=== PATIENT | male | born 1935 | race Caucasian/White ===

== ENCOUNTER 2016-12-11 15:08 | Emergency (ER) | payer MEDICARE, BC ==
[2016-12-11] MEDS ORDERED: INDOMETHACIN 25 MG CAPSULE PO ONE (15:52)
[2016-12-11] MEDS ORDERED: CEFTRIAXONE 1 GRAM VIAL IM ONE (15:53)
[2016-12-11] MEDS ORDERED: CEFTRIAXONE SODIUM 1 GM in 0.9 % SODIUM CHLORIDE 100ML 100 ML IVPB ONE (15:55)
--- NOTE | 2016-12-11 15:58 | Emergency Department Record ---
History of Present Illness - General Chief complaint: Extremity Problem Stated complaint: RT ELBOW RED/SWOLLEN Time Seen by Provider: 12/11/16 15:40 Source: Patient, RN notes reviewed Mode of Arrival: Ambulatory - History of Present Illness Initial comments: redness in the right elbow area and less red today and he has history of gout and he was seen in [facility] care yesterday and started on augmentin 875 mg BID Onset/Timin -: Days(s) Location: Right, Elbow History of Same: No Severity scale (1-10): >10 Quality: Sharp Consistency: Constant Improves with: Nothing Worsens with: Exertion, Palpation, Weight bearing Associated Symptoms: Denies other symptoms - Related Data Home Medications Medication Instructions Recorded Confirmed Last Taken Levothyroxine Sodium [Synthroid] 75 mcg PO DAILY 08/26/14 12/11/16 Unknown Lisinopril [Lisinopril] 40 mg PO DAILY 08/26/14 12/11/16 04/16/15 Metoprolol Tartrate 25 mg PO DAILY 90 Days 12/10/16 12/11/16 Unknown Previous Rx's Medication Instructions Recorded Indomethacin [Indocin] 50 mg PO TID #20 capsule 12/11/16 Allergies Allergy/AdvReac Type Severity Reaction Status Date / Time No Known Drug Allergies Allergy Unverified 12/10/16 13:18 Travel Screening - Travel/Exposure Within Last 30 Days Have you traveled within the last 30 days?: No Review of Systems Reviewed: No additional complaints except as noted below Constitutional: Reports: As per HPI. Denies: Chills, Fever, Malaise, Night sweats, Weakness, Weight change Eyes: Reports: As per HPI. Denies: Eye discharge, Eye pain, Photophobia, Vision change ENT: Reports: As per HPI. Denies: Congestion, Dental pain, Ear pain, Epistaxis , Hearing loss, Throat pain Respiratory: Reports: As per HPI. Denies: Cough, Dyspnea, Hemoptysis, Stridor, Wheezes Cardiovascular: Reports: As per HPI. Denies: Arrhythmia, Chest pain, Dyspnea on exertion, Edema, Murmurs, Orthopnea, Palpitations, Paroxysmal nocturnal dyspnea, Rheumatic Fever, Syncope Endocrine: Reports: As per HPI. Denies: Fatigue, Heat or cold intolerance, Polydipsia, Polyuria Gastrointestinal: Reports: As per HPI. Denies: Abdominal pain, Constipation, Diarrhea, Hematemesis, Hematochezia, Melena, Nausea, Vomiting Genitourinary: Reports: As per HPI. Denies: Dysuria, Frequency, Hematuria, Incontinence, Retention, Testicular pain, Testicular mass, Urgency Musculoskeletal: Reports: As per HPI, Other (redness in the olecronen process area). Denies: Arthralgia, Back pain, Gout, Joint swelling, Myalgia, Neck pain Skin: Reports: As per HPI. Denies: Bruising, Change in color, Change in hair/ nails, Lesions, Pruritus, Rash Neurological: Reports: As per HPI. Denies: Abnormal gait, Confusion, Headache, Numbness, Paresthesias, Seizure, Tingling, Tremors, Vertigo, Weakness Psychiatric: Reports: As per HPI. Denies: Anxiety, Auditory hallucinations, Depression, Homicidal thoughts, Suicidal thoughts, Visual hallucinations Hematological/Lymphatic: Reports: As per HPI. Denies: Anemia, Blood Clots, Easy bleeding, Easy bruising, Swollen glands Past Medical History - SOCIAL HISTORY Smoking Status: Never smoker - RESPIRATORY Hx Respiratory Disorders: No - CARDIOVASCULAR Hx Cardio Disorders: Yes Hx Hypertension: Yes - NEURO Hx Neuro Disorders: Yes Hx Dizziness: Yes - GI Hx GI Disorders: No - Hx Genitourinary Disorders: No - ENDOCRINE Hx Endocrine Disorders: No - MUSCULOSKELETAL Hx Musculoskeletal Disorders: Yes Hx Arthritis: Yes - PSYCH Hx Psych Problems: Yes Hx Anxiety: Yes Hx Depression: Yes - HEMATOLOGY/ONCOLOGY Hx Hematology/Oncology Disorders: No Family Medical History Any Significant Family History?: No Physical Exam - General General Appearance: Alert, Oriented x3, Cooperative, No acute distress - Head Head exam: Normal inspection - Eye Eye exam: Normal appearance, PERRL Pupils: Normal accommodation - ENT ENT exam: Normal exam, Mucous membranes moist, Normal external ear exam, Normal orophraynx, TM's normal bilaterally Ear exam: Normal external inspection. negative: External canal tenderness Nasal Exam: Normal inspection. negative: Discharge, Sinus tenderness Mouth exam: Normal external inspection, Tongue normal Teeth exam: Normal inspection. negative: Dental caries Throat exam: Normal inspection. negative: Tonsillar erythema, Tonsillar exudate - Neck Neck exam: Normal inspection, Full ROM. negative: Tenderness - Respiratory Respiratory exam: Normal lung sounds bilaterally. negative: Respiratory distress - Cardiovascular Cardiovascular Exam: Regular rate, Normal rhythm, Normal heart sounds - GI/Abdominal GI/Abdominal exam: Soft, Normal bowel sounds. negative: Tenderness - Rectal Rectal exam: Deferred - exam: Deferred - Extremities Extremities exam: Full ROM, Normal capillary refill, Tenderness, Other - Back Back exam: Reports: Normal inspection, Full ROM. Denies: Muscle spasm, Rash noted, Tenderness - Neurological Neurological exam: Alert, Normal gait, Oriented X3, Reflexes normal - Psychiatric Psychiatric exam: Normal affect, Normal mood - Skin Skin exam: Dry, Intact, Normal color, Warm Course Vital Signs 12/11/16 15:31 Temperature 98.6 F Pulse Rate 100 H Respiratory 18 Rate Blood Pressure 139/77 Pulse Ox 97 Medical Decision Making - Data Complexity MDM Data: Labs Ordered and/or Reviewed - Lab Data Result diagrams: 12/11/16 16:15 Disposition Clinical Impression: Olecranon bursitis Qualifiers: Laterality: right Qualified Code(s): M70.21 - Olecranon bursitis, right elbow Cellulitis Qualifiers: Site of cellulitis: extremity Site of cellulitis of extremity: upper extremity Laterality: right Qualified Code(s): L03.113 - Cellulitis of right upper limb Disposition: Home, Self-Care Condition: (1) Good Instructions: Elbow Bursitis (ED) Additional Instructions: follow up with Dr Avila at 9 am tomorrow Prescriptions: Indomethacin [Indocin] 50 mg PO TID #20 capsule Forms: Patient Portal Access Time of Disposition: 16:46
[2016-12-11 16:29] LABS: BASO % 0.3 % (0-6); EOS % 4.8 % (0-6); GRAN % 66.3 % (47-80); LYMPH % 19.4 % (16-45); MEAN CELL VOLUME 90.3 fl (81-97); MEAN CORPUSCULAR HEMOGLOBIN 30.1 pg (27-33); MEAN CORPUSCULAR HGB CONC 33.3 g/dl (32-36); MEAN PLATELET VOLUME 10.8 fl (7.4-10.4); MONO % 9.2 % (0-9); PLATELET COUNT 189 K/uL (130-400); RED BLOOD COUNT 4.65 M/uL (4.40-5.70); RED CELL DISTRIBUTION WIDTH 12.7 % (11.5-14.5); WHITE BLOOD COUNT W/O DIFF 9.2 K/uL (4.2-12.2)
== END 2016-12-11 16:59 | disposition home or self-care (01) ==
LOC: ER 15:08
DX: M70.21 Olecranon bursitis, right elbow (principal); L03.113 Cellulitis of right upper limb
CPT/HCPCS: 84550; 85025; 96365; 99284

== ENCOUNTER 2016-12-12 18:38 | Emergency (ER) | payer MEDICARE, BC ==
[2016-12-12 20:19] LABS: BASO % 0.1 % (0-6); EOS % 7.1 % (0-6); GRAN % 56.8 % (47-80); HEMATOCRIT 39.6 % (42.0-52.0); HEMOGLOBIN 13.2 gm/dl (14.0-18.0); LYMPH % 23.8 % (16-45); MEAN CORPUSCULAR HGB CONC 33.3 g/dl (32-36); MEAN PLATELET VOLUME 10.8 fl (7.4-10.4); MONO % 12.2 % (0-9); PLATELET COUNT 189 K/uL (130-400); RED BLOOD COUNT 4.45 M/uL (4.40-5.70); RED CELL DISTRIBUTION WIDTH 12.5 % (11.5-14.5); WHITE BLOOD COUNT W/O DIFF 6.7 K/uL (4.2-12.2)
[2016-12-12 20:23] LABS: MEAN CORPUSCULAR HEMOGLOBIN 29.6 pg (27-33)
[2016-12-12 20:32] LABS: ALB/GLOB RATIO 1.2 (1.1-1.8); ALBUMIN 3.6 gm/dL (3.5-5.0); ANION GAP 7.6 (7-16); BILIRUBIN,TOTAL 0.66 mg/dL (0.2-1.3); CARBON DIOXIDE 24.4 mmol/L (22-30); CREATININE 1.8 mg/dL (0.66-1.25); TOTAL PROTEIN 6.6 gm/dL (6.3-8.2)
[2016-12-12 20:32] LABS: URINE APPEARANCE CLEAR; URINE BILIRUBIN MODERATE (NEGATIVE); URINE BLOOD NEGATIVE (NEGATIVE); URINE COLOR YELLOW; URINE GLUCOSE (UA) NEGATIVE (NEGATIVE); URINE KETONE TRACE (NEGATIVE); URINE LEUKOCYTE ESTERASE NEGATIVE (NEGATIVE); URINE NITRITE NEGATIVE (NEGATIVE); URINE UROBILINOGEN 0.2 E.U./dL (0.20 - 1.00)
[2016-12-12 20:59] LABS: ERYTHROCYTE SEDIMENTATION RATE 18 mm/hr (0-20)
--- NOTE | 2016-12-12 21:42 | Emergency Department Record ---
History of Present Illness - General Chief Complaint: Confusion Stated Complaint: CONFUSED,ELBOW PAIN Time Seen by Provider: 12/12/16 19:34 Source: Patient, Family Mode of Arrival: Ambulatory Limitations: No limitations - History of Present Illness Initial Comments: pt brought in by family for increased confusion. pt is being treated w augmentin the last few days for olecranon bursitis. tonight he seemed more confused and he had problems holding onto his cup with his right hand [the arm with olecranon bursitis] family says the elbow looks better and has less swelling then it had. MD Complaint: Altered mental status Onset/Timin -: Days(s) Severity: Moderate Consistency: Getting worse Context: Change in medication Associated Symptoms: Denies other symptoms - [place] Coma Scale Eye Response: (4) Open spontaneously Motor Response: (6) Obeys commands Verbal Response: (4) Confused conversation [place] Total: 14 - Symptoms of Stroke Symptoms of stroke: Onset of Confusion - Related Data Home Medications Medication Instructions Recorded Confirmed Last Taken Levothyroxine Sodium [Synthroid] 75 mcg PO DAILY 08/26/14 12/12/16 Unknown Lisinopril [Lisinopril] 40 mg PO DAILY 08/26/14 12/12/16 04/16/15 Metoprolol Tartrate 25 mg PO DAILY 90 Days 12/10/16 12/12/16 Unknown Previous Rx's Medication Instructions Recorded Indomethacin [Indocin] 50 mg PO TID #20 capsule 12/11/16 Allergies Allergy/AdvReac Type Severity Reaction Status Date / Time No Known Drug Allergies Allergy Unverified 12/10/16 13:18 Travel Screening - Travel/Exposure Within Last 30 Days Have you traveled within the last 30 days?: No - Travel/Exposure Within Last Year Have you traveled outside the [place] in the last year?: No - Additonal Travel Details Have you been exposed to anyone with a communicable illness?: No - Travel Symptoms Symptom Screening: None Review of Systems Reviewed: No additional complaints except as noted below Constitutional: Reports: As per HPI. Denies: Chills, Fever, Malaise, Night sweats, Weakness, Weight change Eyes: Reports: As per HPI. Denies: Eye discharge, Eye pain, Photophobia, Vision change ENT: Reports: As per HPI. Denies: Congestion, Dental pain, Ear pain, Epistaxis , Hearing loss, Throat pain Respiratory: Reports: As per HPI. Denies: Cough, Dyspnea, Hemoptysis, Stridor, Wheezes Cardiovascular: Reports: As per HPI. Denies: Arrhythmia, Chest pain, Dyspnea on exertion, Edema, Murmurs, Orthopnea, Palpitations, Paroxysmal nocturnal dyspnea, Rheumatic Fever, Syncope Endocrine: Reports: As per HPI. Denies: Fatigue, Heat or cold intolerance, Polydipsia, Polyuria Gastrointestinal: Reports: As per HPI. Denies: Abdominal pain, Constipation, Diarrhea, Hematemesis, Hematochezia, Melena, Nausea, Vomiting Genitourinary: Reports: As per HPI. Denies: Dysuria, Frequency, Hematuria, Incontinence, Retention, Testicular pain, Testicular mass, Urgency Musculoskeletal: Reports: As per HPI. Denies: Arthralgia, Back pain, Gout, Joint swelling, Myalgia, Neck pain Skin: Reports: As per HPI. Denies: Bruising, Change in color, Change in hair/ nails, Lesions, Pruritus, Rash Neurological: Reports: As per HPI. Denies: Abnormal gait, Confusion, Headache, Numbness, Paresthesias, Seizure, Tingling, Tremors, Vertigo, Weakness Psychiatric: Reports: As per HPI. Denies: Anxiety, Auditory hallucinations, Depression, Homicidal thoughts, Suicidal thoughts, Visual hallucinations Hematological/Lymphatic: Reports: As per HPI. Denies: Anemia, Blood Clots, Easy bleeding, Easy bruising, Swollen glands Past Medical History - SOCIAL HISTORY Smoking Status: Never smoker Alcohol Use: None Drug Use: None - RESPIRATORY Hx Respiratory Disorders: No - CARDIOVASCULAR Hx Cardio Disorders: Yes Hx Hypertension: Yes - NEURO Hx Neuro Disorders: Yes Hx Dizziness: Yes - GI Hx GI Disorders: No - Hx Genitourinary Disorders: No - ENDOCRINE Hx Endocrine Disorders: No - MUSCULOSKELETAL Hx Musculoskeletal Disorders: Yes Hx Arthritis: Yes - PSYCH Hx Psych Problems: Yes Hx Anxiety: Yes Hx Depression: Yes - HEMATOLOGY/ONCOLOGY Hx Hematology/Oncology Disorders: No Family Medical History Any Significant Family History?: No Physical Exam - General General Appearance: Alert, Oriented x3, Cooperative, Mild distress - Head Head exam: Normal inspection - Eye Eye exam: Normal appearance, PERRL, EOMI Pupils: Normal accommodation - ENT ENT exam: Normal exam, Mucous membranes moist, Normal external ear exam, Normal orophraynx Ear exam: Normal external inspection. negative: External canal tenderness Nasal Exam: Normal inspection. negative: Discharge, Sinus tenderness Mouth exam: Normal external inspection, Tongue normal Teeth exam: Normal inspection. negative: Dental caries Throat exam: Normal inspection. negative: Tonsillar erythema, Tonsillar exudate - Neck Neck exam: Normal inspection, Full ROM. negative: Tenderness - Respiratory Respiratory exam: Normal lung sounds bilaterally. negative: Respiratory distress - Cardiovascular Cardiovascular Exam: Regular rate, Normal rhythm, Normal heart sounds - GI/Abdominal GI/Abdominal exam: Soft, Normal bowel sounds. negative: Tenderness - Rectal Rectal exam: Deferred - exam: Deferred - Extremities Extremities exam: Normal inspection, Full ROM, Normal capillary refill. negative: Tenderness - Back Back exam: Reports: Normal inspection, Full ROM. Denies: Muscle spasm, Rash noted, Tenderness - Neurological Neurological exam: Alert, CN II-XII intact, Normal gait, Oriented X3 - Psychiatric Psychiatric exam: Normal affect, Normal mood - Skin Skin exam: Dry, Intact, Normal color, Warm Course Vital Signs 12/12/16 18:52 Temperature 98.4 F Pulse Rate 84 Respiratory 20 Rate Blood Pressure 151/93 Pulse Ox 98 - Reevaluation(s) Reevaluation #1: 12/12/16 21:42 pts confusion cleared. pt has no focal deficits.d/w dr ramon Medical Decision Making - Lab Data Result diagrams: 12/12/16 20:10 12/12/16 20:10 Lab Results 12/12/16 12/12/16 12/12/16 Range/Units 20:10 20:10 20:20 WBC 6.7 (4.2-12.2) K/uL RBC 4.45 (4.40-5.70) M/uL Hgb 13.2 L (14.0-18.0) gm/dl Hct 39.6 L (42.0-52.0) % MCV 89.0 (81-97) fl MCH 29.6 (27-33) pg MCHC 33.3 (32-36) g/dl RDW 12.5 (11.5-14.5) % Plt Count 189 (130-400) K/uL MPV 10.8 H (7.4-10.4) fl Gran % 56.8 (47-80) % Lymphocytes % 23.8 (16-45) % Monocytes % 12.2 H (0-9) % Eosinophils % 7.1 H (0-6) % Basophils % 0.1 (0-6) % ESR 18 (0-20) mm/hr Sodium 136 (136-145) mmol/L Potassium 4.2 (3.5-5.1) mmol/L Chloride 104 (98-107) mmol/L Carbon Dioxide 24.4 (22-30) mmol/L Anion Gap 7.6 (7-16) BUN 36 H (9-20) mg/dL Creatinine 1.8 H (0.66-1.25) mg/dL Estimated GFR 39 ml/min Random Glucose 97 (70-110) mg/dL Calcium 8.2 L (8.5-10.1) mg/dL Total Bilirubin 0.66 (0.2-1.3) mg/dL AST 14 L (17-59) U/L ALT 20 L (21-72) U/L Alkaline Phosphatase 68 (38-126) U/L Total Protein 6.6 (6.3-8.2) gm/dL Albumin 3.6 (3.5-5.0) gm/dL Globulin 3.0 (1.4-4.8) gm/dL Albumin/Globulin Ratio 1.2 (1.1-1.8) Urine Color Yellow Urine Appearance Clear Urine pH 5.5 (5.0-8.0) Ur Specific [place] >= 1.030 (1.002-1.030) Urine Protein 30 mg/dl H (NEGATIVE) Urine Glucose (UA) Negative (NEGATIVE) Urine Ketones Trace H (NEGATIVE) Urine Blood Negative (NEGATIVE) Urine Nitrite Negative (NEGATIVE) Urine Bilirubin Moderate H (NEGATIVE) Urine Urobilinogen 0.2 (0.20 - 1.00) E.U./dL Ur Leukocyte Esterase Negative (NEGATIVE) Disposition Disposition: Discharge Clinical Impression: Confusion Disposition: Home, Self-Care Condition: (1) Good Instructions: Altered Mental Status (ED) Additional Instructions: follow up tomorrow with dr ramon for recheck. return sooner if worse Forms: Patient Portal Access
== END 2016-12-12 22:00 | disposition home or self-care (01) ==
LOC: ER 18:38
DX: R41.0 Disorientation, unspecified (principal); M25.521 Pain in right elbow; I10 Essential (primary) hypertension
CPT/HCPCS: 70450; 80053; 81003; 85025; 85651; 99283; 99284

== ENCOUNTER 2016-12-22 12:07 | Emergency (ER) | payer MEDICARE, BC ==
--- NOTE | 2016-12-22 12:32 | Emergency Department Record ---
History of Present Illness - General Chief Complaint: Cough Stated Complaint: COUGH Time Seen by Provider: 12/22/16 12:26 Source: Patient Mode of Arrival: Ambulatory Limitations: No limitations - History of Present Illness Initial Comments: 80 yo male presents to ED to ED with a CC of cough symptoms and "shaking all over" this morning. Patient also reports feeling "queasy to the his stomach", denies pain symptoms. Patient's significant other reports that the patient has also been more confused intermittently, was seen last week for similar symptoms and had a negative work-up at that time. SO denies fevers/chills. MD Complaint: Cough Onset/Timin -: Days(s) Severity: Moderate Consistency: Intermittent Improves With: Nothing Worsens With: Nothing Associated Symptoms: Nausea Treatments Prior to Arrival: None - Related Data Home Medications Medication Instructions Recorded Confirmed Last Taken Levothyroxine Sodium [Synthroid] 75 mcg PO DAILY 08/26/14 12/22/16 12/22/16 Lisinopril [Lisinopril] 40 mg PO DAILY 08/26/14 12/22/16 12/22/16 Metoprolol Tartrate 25 mg PO DAILY 90 Days 12/10/16 12/22/16 12/22/16 Previous Rx's Medication Instructions Recorded Indomethacin [Indocin] 50 mg PO TID #20 capsule 12/11/16 Ondansetron [Zofran Odt] 4 mg PO Q6H PRN #20 tab.rapdis 12/22/16 Allergies Allergy/AdvReac Type Severity Reaction Status Date / Time No Known Drug Allergies Allergy Unverified 12/10/16 13:18 Travel Screening - Travel/Exposure Within Last 30 Days Have you traveled within the last 30 days?: No - Travel/Exposure Within Last Year Have you traveled outside the [place] in the last year?: No - Additonal Travel Details Have you been exposed to anyone with a communicable illness?: No - Travel Symptoms Symptom Screening: None Review of Systems Constitutional: Reports: Chills. Denies: Fever, Malaise, Night sweats Eyes: Denies: Eye discharge, Eye pain ENT: Reports: Congestion. Denies: Ear pain, Epistaxis Respiratory: Reports: Cough. Denies: Dyspnea Cardiovascular: Denies: Chest pain, Dyspnea on exertion Endocrine: Denies: Fatigue, Heat or cold intolerance Gastrointestinal: Reports: Nausea. Denies: Abdominal pain, Constipation, Vomiting Genitourinary: Denies: Incontinence, Retention Musculoskeletal: Denies: Arthralgia, Back pain, Gout, Joint swelling Skin: Denies: Bruising, Change in color Neurological: Denies: Abnormal gait, Confusion, Headache, Seizure Psychiatric: Denies: Anxiety Hematological/Lymphatic: Denies: Anemia, Blood Clots Past Medical History - SOCIAL HISTORY Smoking Status: Never smoker Alcohol Use: Occassional Drug Use: None - RESPIRATORY Hx Respiratory Disorders: No - CARDIOVASCULAR Hx Cardio Disorders: Yes Hx Hypertension: Yes - NEURO Hx Neuro Disorders: Yes Hx Dizziness: Yes - GI Hx GI Disorders: No - Hx Genitourinary Disorders: No - ENDOCRINE Hx Endocrine Disorders: No - MUSCULOSKELETAL Hx Musculoskeletal Disorders: Yes Hx Arthritis: Yes - PSYCH Hx Psych Problems: Yes Hx Anxiety: Yes Hx Depression: Yes - HEMATOLOGY/ONCOLOGY Hx Hematology/Oncology Disorders: No Family Medical History Any Significant Family History?: No Physical Exam - General General Appearance: Alert, Oriented x3, Cooperative, No acute distress Limitations: No limitations - Head Head exam: Atraumatic, Normocephalic, Normal inspection Head exam detail: negative: Abrasion, Contusion, Norton's sign, General tenderness, Hematoma, Laceration - Eye Eye exam: Normal appearance. negative: Conjunctival injection, Periorbital swelling, Periorbital tenderness, Scleral icterus - ENT Ear exam: negative: Auricular hematoma, Auricular trauma Nasal Exam: negative: Active bleeding, Discharge, Dried blood, Foreign body Mouth exam: negative: Drooling, Laceration, Muffled voice, Tongue elevation - Neck Neck exam: Normal inspection. negative: Meningismus, Tenderness - Respiratory Respiratory exam: Normal lung sounds bilaterally. negative: Rales, Respiratory distress, Rhonchi, Stridor - Cardiovascular Cardiovascular Exam: Regular rate, Normal rhythm, Normal heart sounds - GI/Abdominal GI/Abdominal exam: Soft. negative: Rebound, Rigid, Tenderness - Rectal Rectal exam: Deferred - exam: Deferred - Extremities Extremities exam: Tenderness, Other (TTP over the right elbow, being treated for bursitis through his PCP). negative: Pedal edema - Back Back exam: Denies: CVA tenderness (R), CVA tenderness (L) - Neurological Neurological exam: Alert, Normal gait, Oriented X3 - Psychiatric Psychiatric exam: Normal affect, Normal mood - Skin Skin exam: Normal color. negative: Abrasion Type of lesion: negative: abrasion Course Vital Signs 12/22/16 12:10 Temperature 98.0 F Pulse Rate 69 Respiratory 16 Rate Blood Pressure 133/81 Pulse Ox 95 - Reevaluation(s) Reevaluation #1: 12/22/16 12:32 Records reviewed from visit 12/12/16, labs grossly unremarkable for an acute process, CT Brain demonstrated non-specific findings, nothing acute however. Will repeat laboratory studies, check UA/TSH as well as chest radiography, and reassess. 12/22/16 12:33 Reevaluation #2: 12/22/16 13:30 Labs reviewed, WBC 13.1, labs are otherwise grossly unremarkable for an acute process. CXR: Chronic changes, nothing acute. Patient and his significant other were updated on all results, and patient reports that he has 2.5 days remaining of his Augmentin. Patient was encouraged to complete his antibiotic as prescribed, will send Rx for Zofran to the pharmacy to use as needed. No evidence for other acute bacterial infection on examination. Patient appears stable for discharge at this time. Medical Decision Making - Lab Data Result diagrams: 12/22/16 12:55 12/22/16 12:55 Disposition Disposition: Discharge Clinical Impression: Bronchitis Disposition: Home, Self-Care Condition: (2) Stable Instructions: Acute Bronchitis (ED) Additional Instructions: Return to ED if your symptoms worsen or if you have any concerns. Zofran as directed. Continue Augmentin until gone. Follow-up with your family doctor in 3-5 days as directed. Prescriptions: Ondansetron [Zofran Odt] 4 mg PO Q6H PRN #20 tab.rapdis PRN Reason: Nausea/Vomiting Forms: Patient Portal Access Time of Disposition: 13:39
[2016-12-22 13:04] LABS: BASO % 0.2 % (0-6); GRAN % 75.6 % (47-80); HEMATOCRIT 43.5 % (42.0-52.0); HEMOGLOBIN 14.4 gm/dl (14.0-18.0); LYMPH % 14.2 % (16-45); MEAN CELL VOLUME 89.1 fl (81-97); MEAN CORPUSCULAR HEMOGLOBIN 29.5 pg (27-33); MEAN CORPUSCULAR HGB CONC 33.1 g/dl (32-36); MEAN PLATELET VOLUME 10.4 fl (7.4-10.4); PLATELET COUNT 240 K/uL (130-400); RED BLOOD COUNT 4.88 M/uL (4.40-5.70); RED CELL DISTRIBUTION WIDTH 13.4 % (11.5-14.5); WHITE BLOOD COUNT W/O DIFF 13.1 K/uL (4.2-12.2)
[2016-12-22 13:15] LABS: URINE APPEARANCE CLEAR; URINE BILIRUBIN NEGATIVE (NEGATIVE); URINE BLOOD NEGATIVE (NEGATIVE); URINE COLOR YELLOW; URINE GLUCOSE (UA) NEGATIVE (NEGATIVE); URINE KETONE NEGATIVE (NEGATIVE); URINE LEUKOCYTE ESTERASE NEGATIVE (NEGATIVE); URINE NITRITE NEGATIVE (NEGATIVE); URINE UROBILINOGEN 0.2 E.U./dL (0.20 - 1.00)
[2016-12-22 13:18] LABS: ALB/GLOB RATIO 1.4 (1.1-1.8); ALBUMIN 3.8 gm/dL (3.5-5.0); ANION GAP 8.3 (7-16); BILIRUBIN,TOTAL 0.45 mg/dL (0.2-1.3); CARBON DIOXIDE 22.7 mmol/L (22-30); CREATININE 1.5 mg/dL (0.66-1.25); TOTAL PROTEIN 6.6 gm/dL (6.3-8.2)
[2016-12-22 13:33] LABS: URINE EPITHELIAL CELLS 0 - 2 (FEW); URINE RBC 0 - 2 (NONE SEEN); URINE WBC 0 - 2 (0-2/hpf)
[2016-12-22 13:47] LABS: THYROID STIMULATING HORMONE 3.09 uIU/ml (0.465-4.68)
--- NOTE | 2016-12-26 16:55 | RADIOLOGY REPORT ---
EXAM: CHEST 2 VIEWS HISTORY: COUGH AND CHILLS. TECHNIQUE: Upright PA and lateral views of the chest. COMPARISON: Two-view chest radiographic examination dated 08/26/2014. FINDINGS: The heart is not enlarged and the pulmonary vasculature is nondilated. The thoracic aorta is tortuous and atherosclerotic. Mild biapical pleural and parenchymal scarring is present. Mild increased opacity is noted at the left hemithorax space causing obscuration of the cardiac apex. This is likely the result of a prominent pericardial fat pad and is unchanged dating back to 08/08/2014. The lungs do appear mildly hyperinflated. There are degenerative changes scattered within the visualized spine and shoulder girdles. A surgical anchor is again noted in the proximal right humerus. IMPRESSION: NO EVIDENCE OF ACUTE CARDIOPULMONARY DISEASE. CHRONIC FINDINGS, DISCUSSED ABOVE. JOB NUMBER: [id number] [facility]
== END 2016-12-22 13:48 | disposition home or self-care (01) ==
LOC: ER 12:07
DX: J20.9 Acute bronchitis, unspecified (principal); M70.32 Other bursitis of elbow, left elbow; R41.0 Disorientation, unspecified; R11.0 Nausea; I10 Essential (primary) hypertension
CPT/HCPCS: 71020; 80053; 81001; 84443; 85025; 99283; 99284